=== PATIENT | female | born 1940 | race Caucasian/White ===

== ENCOUNTER 2017-06-08 17:34 | Emergency (ER) | payer MEDICARE, BC ==
--- NOTE | 2017-06-08 18:14 | ER Document Report ---
ED Medical Screen (RME) - General Chief Complaint: Abnormal Lab Results Stated Complaint: SHORTNESS OF BREATH,LEG SWELLING Time Seen by Provider: 06/08/17 18:04 TRAVEL OUTSIDE OF THE [place] IN LAST 30 DAYS: No - HPI Notes: 06/08/17 18:12 Patient seen in today for possible blood transfusion anemia with hemoglobin of 7.6 laboratory studies also elevated BNP of 500 patient denies any vaginal bleeding bloody diarrhea bloody stools. Patient states dyspnea with exertion patient does smoke cigarettes. Also states swelling of her feet patient has been eating a lot of lightly salty popcorn - Related Data Allergies/Adverse Reactions: ibuprofen [From Motrin] Allergy (Verified 06/08/17 17:36) Hives Penicillins Allergy (Verified 06/08/17 17:36) Hives Past Medical History - Social History Chew tobacco use (# tins/day): No Frequency of alcohol use: None Drug Abuse: None - Past Medical History Cardiac Medical History: Denies: Hx Heart Attack, Hx Hypertension Pulmonary Medical History: Denies: Hx Asthma Neurological Medical History: Denies: Hx Cerebrovascular Accident, Hx Seizures Renal/ Medical History: Denies: Hx Peritoneal Dialysis GI Medical History: Denies: Hx Hepatitis, Hx Hiatal Hernia, Hx Ulcer Infectious Medical History: Denies: Hx Hepatitis Past Surgical History: Denies: Hx Mastectomy, Hx Open Heart Surgery, Hx Pacemaker Review of Systems - Review of Systems Cardiovascular: Dyspnea -: Yes All other systems reviewed and negative Physical Exam - Vital signs Vitals: Temp Pulse Resp BP Pulse Ox 97.9 F 91 14 144/60 H 100 06/08/17 17:50 06/08/17 17:50 06/08/17 17:50 06/08/17 17:50 06/08/17 17:50 Interpretation: Normal - General General appearance: Appears well, Alert - HEENT Head: Normocephalic - Respiratory Respiratory status: No respiratory distress - Cardiovascular Murmur: No - Abdominal Inspection: Normal - Extremities General upper extremity: Normal inspection General lower extremity: Normal inspection - Neurological Neuro grossly intact: Yes Sensory: Normal Course - Vital Signs Vital signs: Temp Pulse Resp BP Pulse Ox 97.9 F 91 14 144/60 H 100 06/08/17 17:50 06/08/17 17:50 06/08/17 17:50 06/08/17 17:50 06/08/17 17:50
--- NOTE | 2017-06-08 18:34 | RADIOLOGY REPORT (SQ) ---
EXAM DESCRIPTION: CHEST SINGLE VIEW COMPLETED DATE/TIME: 06/08/2017 6:25 pm REASON FOR STUDY: sob COMPARISON: 06/25/2006 EXAM PARAMETERS: NUMBER OF VIEWS: One view. TECHNIQUE: Single frontal radiographic view of the chest acquired. RADIATION DOSE: NA LIMITATIONS: None. FINDINGS: LUNGS AND PLEURA: Chronic interstitial changes are suggested in the lung bases. No acute infiltrate or effusion is seen. No mass is appreciated. MEDIASTINUM AND HILAR STRUCTURES: No masses. Contour normal. HEART AND VASCULAR STRUCTURES: Heart size is borderline. There is no evidence of failure. BONES: Scoliosis. HARDWARE: None in the chest. OTHER: No other significant finding. IMPRESSION: Borderline cardiomegaly without failure. Chronic lung changes with no acute pulmonary d isease. Scoliosis. TECHNICAL DOCUMENTATION: JOB ID: [id number]- All Rights Reserved Reading location - IP/workstation name: [email or web address]
[2017-06-08 18:51] LABS: ABSOLUTE BASOPHILS # (AUTO) 0.1 10^3/uL (0.0-0.2); ABSOLUTE EOSINOPHILS # (AUTO) 0.1 10^3/uL (0.0-0.6); ABSOLUTE LYMPHOCYTES (AUTO) 1.8 10^3/uL (0.5-4.7); ABSOLUTE MONOCYTES (AUTO) 0.7 10^3/uL (0.1-1.4); ABSOLUTE NEUT (AUTO) 6.9 10^3/uL (1.7-8.2); ABSOLUTE RETICS # 0.061 10^6/uL (0.028-0.122); BASOPHILS % (AUTO) 0.5 % (0-2); EOSINOPHILS % (AUTO) 1.4 % (0-6); HEMATOCRIT 23.6 % (36.0-47.0); LYMPHOCYTES % (AUTO) 18.9 % (13-45); MEAN CORPUSCULAR HEMOGLOBIN 27.9 pg (27.0-33.4); MEAN CORPUSCULAR HGB CONC 32.4 g/dL (32.0-36.0); MEAN CORPUSCULAR VOLUME 86 fl (80-97); MONOCYTES % (AUTO) 6.9 % (3-13); PLATELET COUNT 487 10^3/uL (150-450); RED BLOOD COUNT 2.74 10^6/uL (3.72-5.28); RED CELL DISTRIBUTION WIDTH 15.5 % (11.5-14.0); RETICULOCYTE COUNT (AUTO) 2.24 % (0.66-2.85); SEGMENTED NEUTROPHILS % (AUTO) 72.3 % (42-78); TOTAL CELLS COUNTED % (AUTO) 100 %; WHITE BLOOD COUNT 9.5 10^3/uL (4.0-10.5)
[2017-06-08 18:52] LABS: HEMOGLOBIN 7.6 g/dL (12.0-15.5)
[2017-06-08 19:03] LABS: ANION GAP 7 (5-19); BLOOD UREA NITROGEN 13 mg/dL (7-20); CALCIUM 9.6 mg/dL (8.4-10.2); CARBON DIOXIDE 29 mmol/L (22-30); CHLORIDE 100 mmol/L (98-107); GLUCOSE 94 mg/dL (75-110); IRON(TIBC) 19.2 ug/dL (37-170); POTASSIUM 4.1 mmol/L (3.6-5.0); SODIUM 135.7 mmol/L (137-145)
[2017-06-08 19:17] LABS: NT PRO BNP 2350 pg/mL (<450)
[2017-06-08 19:19] LABS: TROPONIN I < 0.012 ng/mL
--- NOTE | 2017-06-08 19:21 | EKG REPORT ---
SEVERITY:- NORMAL ECG - SINUS RHYTHM : Confirmed by: Kristyn Ball 08-Jun-2017 19:19:55
[2017-06-08 19:41] LABS: FERRITIN 6.21 ng/mL (11.1-264.0)
--- NOTE | 2017-06-08 19:49 | ER Document Report ---
ED General - General Chief Complaint: Abnormal Lab Results Stated Complaint: SHORTNESS OF BREATH,LEG SWELLING Time Seen by Provider: 06/08/17 18:04 Notes: Patient is a 76-year-old female with past medical history of osteoporosis, current everyday smoker, history of B12 deficiency, who presents from an urgent care with concerns of anemia and elevated proBNP. Patient reports for at least the past 5 months she has had exertional dyspnea, general fatigue, and felt somewhat unwell. She saw her primary care doctor regarding this concern, was started on Spiriva but this did not improve her symptoms. She reports that after the labs reported the urgent care where she was referred directly to the emergency department. She did require she denies any seems to improve or worsen her symptoms. She does note that her symptoms are overall unchanged relative to the past several months today. She denies any chest pain, headache , neck pain or focal weakness or numbness. She states she does take folate and B12 supplements but no iron supplementation. She has never required a blood transfusion in the past. She denies any GI bleed symptoms. TRAVEL OUTSIDE OF THE [place] IN LAST 30 DAYS: No - Related Data Allergies/Adverse Reactions: ibuprofen [From Motrin] Allergy (Verified 06/08/17 17:36) Hives Penicillins Allergy (Verified 06/08/17 17:36) Hives Past Medical History - General Information source: Patient - Social History Smoking Status: Current Every Day Smoker Chew tobacco use (# tins/day): No Frequency of alcohol use: None Drug Abuse: None Lives with: Family Family History: Reviewed & Not Pertinent Patient has suicidal ideation: No Patient has homicidal ideation: No - Past Medical History Cardiac Medical History: Denies: Hx Heart Attack, Hx Hypertension Pulmonary Medical History: Denies: Hx Asthma Neurological Medical History: Denies: Hx Cerebrovascular Accident, Hx Seizures Renal/ Medical History: Denies: Hx Peritoneal Dialysis GI Medical History: Denies: Hx Hepatitis, Hx Hiatal Hernia, Hx Ulcer Musculoskeltal Medical History: Reports Hx Arthritis Infectious Medical History: Denies: Hx Hepatitis Past Surgical History: Reports: Hx Hysterectomy. Denies: Hx Mastectomy, Hx Open Heart Surgery, Hx Pacemaker Review of Systems - Review of Systems Notes: Constitutional: Negative for fever. HENT: Negative for sore throat. Eyes: Negative for visual changes. Cardiovascular: Negative for chest pain. Respiratory: Positive for shortness of breath. Gastrointestinal: Negative for abdominal pain, vomiting or diarrhea. Genitourinary: Negative for dysuria. Musculoskeletal: Negative for back pain. Skin: Positive for pallor Neurological: Negative for headaches, weakness or numbness. 10 point ROS negative except as marked above and in HPI. Physical Exam - Vital signs Vitals: Temp Pulse Resp BP Pulse Ox 97.9 F 91 14 144/60 H 100 06/08/17 17:50 06/08/17 17:50 06/08/17 17:50 06/08/17 17:50 06/08/17 17:50 Interpretation: Hypertensive Notes: PHYSICAL EXAMINATION: GENERAL: Well-appearing, well-nourished and in no acute distress. HEAD: Atraumatic, normocephalic. EYES: Pupils equal round and reactive to light, extraocular movements intact, sclera anicteric, conjunctiva are normal. ENT: nares patent, oropharynx clear without exudates. Moist mucous membranes. NECK: Normal range of motion, supple without lymphadenopathy LUNGS: Breath sounds clear to auscultation bilaterally and equal. No wheezes rales or rhonchi. HEART: Regular rate and rhythm without murmurs ABDOMEN: Soft, nontender, normoactive bowel sounds. No guarding, no rebound. No masses appreciated. EXTREMITIES: Normal range of motion, trace edema in the bilateral lower extremities that is equal and symmetric. NEUROLOGICAL: No focal neurological deficits. Moves all extremities spontaneously and on command. PSYCH: Normal mood, normal affect. SKIN: Warm, Dry, normal turgor, mild pallor Course - Re-evaluation Re-evalutation: 06/08/17 19:36 Patient presents with 4-5 months of exertional dyspnea, pallor, and general weakness, found in urgent care today to have a hemoglobin of 7.6 and referred to the emergency department for further assessment. Patient denies any symptoms at the time of my assessment stating that she only becomes fatigued when she exerts herself. Laboratories do show a hemoglobin of 7.6 with a normocytic anemia. Stool guaiac is negative and there is no evidence of gross blood or melena. She denies any symptoms to suggest a GI bleed she has no vaginal bleeding. This does not appear to be acute blood loss anemia. Likely a chronic picture. In regards to the patient's exertional fatigue this is likely secondary to some underlying degree of congestive heart failure as she does have trace edema in the bilateral lower extremities that is equal and symmetric and a proBNP is elevated and chest x-ray does show cardiomegaly without evidence of pulmonary edema. Patient has never been diagnosed with this but again her symptoms have been so long-standing this is likely a chronic issue. She denies any chest pain, troponin is normal, EKG without ischemic changes. The patient's preference is to go home today I think that this is appropriate as these are long-standing issues. I did offer admission which she did decline. However I have emphasized with her that she is going to need to follow-up closely with cardiology, her primary care doctor, as well as hematology for further assessment. Her hemoglobin is above transfusion threshold as it remains above 7 at this time. Her iron and folate levels are low. She has been started on both ferrous sulfate and folate supplementation. I recommended that she discontinue her B12 supplementation as it is too high. At this time will discharge with return precautions and follow-up recommendations. Verbal discharge instructions given a the bedside and opportunity for questions given. Medication warnings reviewed. Patient is in agreement with this plan and has verbalized understanding of return precautions and the need for primary care follow-up in the next 24-72 hours. - Vital Signs Vital signs: Temp Pulse Resp BP Pulse Ox 97.9 F 91 21 H 136/68 H 97 06/08/17 17:50 06/08/17 17:50 06/08/17 19:01 06/08/17 19:00 06/08/17 19:01 - Laboratory Result Diagrams: 06/08/17 18:21 06/08/17 18:21 Laboratory results interpreted by me: 06/08/17 06/08/17 06/08/17 18:21 18:21 18:21 RBC 2.74 L Hgb 7.6 L Hct 23.6 L RDW 15.5 H Plt Count 487 H Sodium 135.7 L Est GFR (Non-Af Amer) 50 L Iron 19.2 L Ferritin 6.21 L NT-Pro-B Natriuret Pep 2350 H Vitamin B12 > 1000.0 H - Diagnostic Test Radiology reviewed: Image reviewed, Reports reviewed Radiology results interpreted by me: 06/08/17 19:40 Chest x-ray: Cardiomegaly, no overt pulmonary edema - EKG Interpretation by Me Additional EKG results interpreted by me: 06/08/17 19:40 Normal sinus rhythm. Rate 99. No ST elevations or depressions. QTC is 4 and 32. Discharge - Discharge Clinical Impression: Normocytic anemia, Exertional dyspnea Congestive heart failure Qualifiers: Heart failure type: unspecified Heart failure chronicity: unspecified Qualified Code(s): I50.9 - Heart failure, unspecified Condition: Stable Disposition: HOME, SELF-CARE Additional Instructions: You have elected to go home today as opposed to being admitted to the hospital. There are multiple types of doctors you will need to follow-up with in the next 1-2 weeks to better evaluate what has been going on over the last several months. Specifically you need to see cardiology as it appears that you have new onset heart failure. They will need to do an ultrasound of your heart also called an Echocardiogram. There may have additional tests they would like to perform. Your blood counts are also low but not so low that you need blood. This likewise appears to be a chronic picture but you do need to follow-up with a blood doctor to determine the cause of this anemia as well as the types of medications you will need to go on to normalize your blood count. Please return to the emergency department immediately if you develop chest pain, pass out, worsening shortness of breath, or have any other symptoms that are worrisome to you. Prescriptions: Ferrous Sulfate 325 mg PO TID 1 Days #90 tablet Folic Acid 0.4 mg PO DAILY #30 tablet Referrals: LEA ROSALES MD [ACTIVE STAFF] - Follow up in 3-5 days BRITTANIE KING MD [ACTIVE STAFF] - Follow up in 3-5 days
[2017-06-08 20:12] LABS: FOLATE > 20.00 ng/mL (>2.76)
[2017-06-08 20:23] VITALS: BP 132/68
== END 2017-06-08 20:22 | disposition home or self-care (01) ==
LOC: ER 17:34
DX: D64.9 Anemia, unspecified (principal); I50.9 Heart failure, unspecified; R06.09 Other forms of dyspnea; R06.02 Shortness of breath; R53.83 Other fatigue; E53.8 Deficiency of other specified B group vitamins; F17.200 Nicotine dependence, unspecified, uncomplicated; Z79.899 Other long term (current) drug therapy; Z88.6 Allergy status to analgesic agent; Z88.0 Allergy status to penicillin
CPT/HCPCS: 36415; 71045; 80048; 82272; 82607; 82728; 82746; 83540; 83550; 83880; 84466; 84484; 85025; 85045; 86850; 86900; 86901; 93005; 93010; 99284

== ENCOUNTER 2019-07-18 16:58 | Emergency (ER) | payer MEDICARE, BC ==
[2019-07-18 17:12] VITALS: BP 147/76
[2019-07-18 18:20] LABS: ABSOLUTE LYMPHOCYTES (AUTO) 0.9 10^3/uL (0.5-4.7); ABSOLUTE MONOCYTES (AUTO) 0.5 10^3/uL (0.1-1.4); ABSOLUTE NEUT (AUTO) 7.3 10^3/uL (1.7-8.2); BASOPHILS % (AUTO) 0.5 % (0-2); EOSINOPHILS % (AUTO) 0.2 % (0-6); HEMATOCRIT 35.4 % (36.0-47.0); HEMOGLOBIN 12.7 g/dL (12.0-15.5); LYMPHOCYTES % (AUTO) 9.9 % (13-45); MEAN CORPUSCULAR HEMOGLOBIN 35.3 pg (27.0-33.4); MEAN CORPUSCULAR HGB CONC 35.7 g/dL (32.0-36.0); MEAN CORPUSCULAR VOLUME 99 fl (80-97); PLATELET COUNT 316 10^3/uL (150-450); RED BLOOD COUNT 3.59 10^6/uL (3.72-5.28); RED CELL DISTRIBUTION WIDTH 13.6 % (11.5-14.0); SEGMENTED NEUTROPHILS % (AUTO) 83.4 % (42-78); TOTAL CELLS COUNTED % (AUTO) 100 %; WHITE BLOOD COUNT 8.7 10^3/uL (4.0-10.5)
[2019-07-18 18:26] LABS: APPEARANCE,URINE CLOUDY; BILIRUBIN,URINE NEGATIVE (NEGATIVE); COLOR,URINE AMBER; GLUCOSE, URINE NEGATIVE (NEGATIVE); KETONES,URINE TRACE mg/dL (NEGATIVE); LEUKOCYTE ESTERASE,URINE TRACE (NEGATIVE); NITRITE,URINE NEGATIVE (NEGATIVE); PROTEIN,URINE 100 mg/dL (NEGATIVE); URINE SPECIFIC GRAVITY 1.021
[2019-07-18 18:44] LABS: ALBUMIN 4.3 g/dL (3.5-5.0); ALKALINE PHOSPHATASE 85 U/L (38-126); ANION GAP 5 (5-19); ASPARTATE AMINO TRANSFERASE 69 U/L (14-36); BILIRUBIN,DIRECT 0.1 mg/dL (0.0-0.4); BILIRUBIN,TOTAL 0.4 mg/dL (0.2-1.3); BLOOD UREA NITROGEN 21 mg/dL (7-20); CALCIUM 9.6 mg/dL (8.4-10.2); CARBON DIOXIDE 30 mmol/L (22-30); CHLORIDE 94 mmol/L (98-107); GLUCOSE 122 mg/dL (75-110); POTASSIUM 4.5 mmol/L (3.6-5.0); TOTAL PROTEIN 7.4 g/dL (6.3-8.2)
--- NOTE | 2019-07-18 18:52 | RADIOLOGY REPORT (SQ) ---
EXAM DESCRIPTION: CHEST SINGLE VIEW IMAGES COMPLETED DATE/TIME: 07/18/2019 5:31 pm REASON FOR STUDY: epigastric pain COMPARISON: 06/08/2017 EXAM PARAMETERS: NUMBER OF VIEWS: One view. TECHNIQUE: Single frontal radiographic view of the chest acquired. RADIATION DOSE: NA LIMITATIONS: None. FINDINGS: LUNGS AND PLEURA: Lungs are hyperinflated. No focal consolidation or pleural effusion. N o pneumothorax. MEDIASTINUM AND HILAR STRUCTURES: No masses. Contour normal. HEART AND VASCULAR STRUCTURES: Heart normal in size. Normal vasculature. BONES: No acute findings. HARDWARE: None in the chest. OTHER: No other significant finding. IMPRESSION: Severe pulmonary emphysema, stable. No acute cardiopulmonary disease. TECHNICAL DOCUMENTATION: JOB ID: [id number] [employer]- All Rights Reserved Reading location - IP/workstation name: [email or web address]
--- NOTE | 2019-07-18 20:16 | ER Document Report ---
ED General - General Chief Complaint: Abdominal Pain Stated Complaint: ABDOMINAL PAIN, DIARRHEA Time Seen by Provider: 07/18/19 20:02 Primary Care Provider: KAELA OWUSU MD [Primary Care Provider] - Follow up as needed Mode of Arrival: Ambulatory Information source: Patient Notes: triage notes Pt reports epigastric discomfort since . Taking antacid with no relief. States was in the yard today had sudden onset of chills and diarrhea x 2. Family brought pt to be seen today. She is breathing e/u denies pain just has the uneasy, nausea feeling. Has not vomited. Denies cardiac hx. my notes 78-year-old female arrives with chief complaint of epigastric pain pointing to this area. Patient reports this is been present for more than 4 days but worse today while she was walking in the yard. She also has diarrhea x2 today. Patient reports for the last month she been using chlorinated cleansers daily because of the COVID-19 outbreak pandemic. She denies any cough cold chest pain back pain cephalgia nuchal rigidity skin rash and she denies any vomiting. She denies any severe nausea but does have some mild nausea. In fact she wants to go home and eat as I presented myself for my exam. TRAVEL OUTSIDE OF THE [place] IN LAST 30 DAYS: No - HPI Onset: This morning Onset/Duration: Sudden Quality of pain: No pain Severity: None Associated symptoms: None - Sacroiliac Exacerbated by: Denies Relieved by: Denies Similar symptoms previously: No Recently seen / treated by doctor: No - Related Data Allergies/Adverse Reactions: ibuprofen [From Motrin] Allergy (Verified 07/18/19 17:31) Hives Penicillins Allergy (Verified 07/18/19 17:31) Hives Past Medical History - General Information source: Patient - Social History Smoking Status: Current Every Day Smoker Cigarette use (# per day): Yes Chew tobacco use (# tins/day): No Smoking Education Provided: Yes Frequency of alcohol use: None Drug Abuse: None Lives with: Family Family History: Reviewed & Not Pertinent Patient has suicidal ideation: No Patient has homicidal ideation: No - Past Medical History Cardiac Medical History: Denies: Hx Heart Attack, Hx Hypertension Pulmonary Medical History: Denies: Hx Asthma Neurological Medical History: Denies: Hx Cerebrovascular Accident, Hx Seizures Renal/ Medical History: Denies: Hx Peritoneal Dialysis GI Medical History: Denies: Hx Hepatitis, Hx Hiatal Hernia, Hx Ulcer Musculoskeletal Medical History: Reports Hx Arthritis Infectious Medical History: Denies: Hx Hepatitis Past Surgical History: Reports: Hx Hysterectomy. Denies: Hx Mastectomy, Hx Open Heart Surgery, Hx Pacemaker Review of Systems - Review of Systems Constitutional: No symptoms reported EENT: No symptoms reported Cardiovascular: No symptoms reported Respiratory: No symptoms reported Gastrointestinal: See HPI, Abdominal pain, Diarrhea, Nausea Genitourinary: No symptoms reported Female Genitourinary: No symptoms reported Musculoskeletal: No symptoms reported Skin: No symptoms reported Hematologic/Lymphatic: No symptoms reported Neurological/Psychological: No symptoms reported Physical Exam - Vital signs Vitals: Temp Pulse Resp BP Pulse Ox 97.8 F 103 H 18 147/76 H 96 07/18/19 17:08 07/18/19 17:08 07/18/19 17:08 07/18/19 17:08 07/18/19 17:08 Interpretation: Tachycardic - General General appearance: Appears well, Alert - HEENT Head: Normocephalic, Atraumatic Eyes: Normal Pupils: PERRL Pharynx: Normal Neck: Normal - Respiratory Respiratory status: No respiratory distress Chest status: Nontender Breath sounds: Normal Chest palpation: Normal - Cardiovascular Rhythm: Regular - Please note patient no longer has a pulse of 103 but rather 85 bpm. Heart sounds: Normal auscultation Murmur: No - Abdominal Inspection: Normal Distension: No distension Bowel sounds: Hyperactive Tenderness: Tender - Tender epigastric area on palpation Organomegaly: No organomegaly - Back Back: Normal - Extremities General upper extremity: Normal inspection General lower extremity: Normal inspection - Neurological Neuro grossly intact: Yes Cognition: Normal Orientation: AAOx4 [place] Coma Scale Eye Opening: Spontaneous [place] Coma Scale Verbal: Oriented [place] Coma Scale Motor: Obeys Commands [place] Coma Scale Total: 15 Speech: Normal Motor strength normal: LUE, RUE, LLE, RLE Sensory: Normal - Psychological Associated symptoms: Normal affect - Skin Skin Temperature: Warm Skin Moisture: Dry Course - Vital Signs Vital signs: Temp Pulse Resp BP Pulse Ox 97.8 F 103 H 18 147/76 H 96 07/18/19 17:35 07/18/19 17:08 07/18/19 17:08 07/18/19 17:08 07/18/19 17:08 - Laboratory Result Diagrams: 07/18/19 18:06 07/18/19 18:06 Laboratory results interpreted by me: 07/18/19 07/18/19 07/18/19 18:06 18:06 18:06 RBC 3.59 L Hct 35.4 L MCV 99 H MCH 35.3 H Lymph % (Auto) 9.9 L Seg Neutrophils % 83.4 H Sodium 128.8 L Chloride 94 L BUN 21 H Creatinine 1.27 H Est GFR ( Amer) 49 L Est GFR (MDRD) Non-Af 41 L Glucose 122 H AST 69 H ALT 41 H Lipase 494.2 H Urine Protein 100 H Urine Ketones TRACE H Urine Urobilinogen 2.0 H Ur Leukocyte Esterase TRACE H Urine Ascorbic Acid 40 H - Diagnostic Test Radiology reviewed: Reports reviewed Critical Care Note - Critical Care Note Total time excluding time spent on procedures (mins): 60 Comments: Patient" wants to leave so she can get something to eat" I advised her of her chest x-ray and her laboratory results with a positive lipase/patient was not willing to get a CT at this time. When I walked into the room the hvac field service technician was getting ready to take her to CT and patient wanted to go home. Discharge - Discharge Clinical Impression: PUD (peptic ulcer disease) Abdominal pain Qualifiers: Abdominal location: epigastric Qualified Code(s): R10.13 - Epigastric pain Pancreatitis Qualifiers: Chronicity: acute Pancreatitis type: unspecified pancreatitis type Acute pancreatitis complication: unspecified Qualified Code(s): K85.90 - Acute pancreatitis without necrosis or infection, unspecified Condition: Good Disposition: HOME, SELF-CARE Additional Instructions: Follow-up with personal doctor this week return to ER as needed take medicines as directed encourage fluids. Try to stick to bananas rice applesauce toast nikolai naima crackers and then advance to other foods. Try to avoid milk and meat products for least 48 hours Prescriptions: Sucralfate [Carafate 1 gm Tablet] 1 gm PO ACHS #60 tablet Famotidine [Pepcid 20 mg Tablet] 20 mg PO BID #12 tablet Ondansetron [Zofran Odt 4 mg Tablet] 1 tab PO Q4H PRN #15 tab.rapdis PRN Reason: For Nausea/Vomiting Referrals: KAELA OWUSU MD [Primary Care Provider] - Follow up as needed
[2019-07-18] MEDS ORDERED: SUCRALFATE 1 GM TABLET PO ONE (20:40)
[2019-07-18] MEDS ORDERED: ONDANSETRON 4 MG TAB.RAPDIS PO ONE (20:40)
--- NOTE | 2019-07-18 22:32 | EKG REPORT ---
SEVERITY:- NORMAL ECG - SINUS RHYTHM : Confirmed by: Kristyn Ball 18-Jul-2019 22:30:59
== END 2019-07-18 20:49 | disposition home or self-care (01) ==
LOC: ER 16:58
DX: K27.9 Peptic ulcer, site unspecified, unspecified as acute or chronic, without hemorrhage or perforation (principal); K85.90 Acute pancreatitis without necrosis or infection, unspecified; R10.13 Epigastric pain; R19.7 Diarrhea, unspecified; F17.210 Nicotine dependence, cigarettes, uncomplicated
CPT/HCPCS: 93005; 99285; 36415; 83690; 85025; 80053; 81001; 84484; 71045; 93010; A9270 ×2; S0119

== ENCOUNTER → 2020-01-23 | Outpatient (CLI) | payer MEDICARE, BC | LOC: OD 15:20 | PROVIDERS: ATTEND Family Medicine | DX: R11.0 Nausea (principal) | CPT/HCPCS: 36415; 86677 ==

== ENCOUNTER 2020-01-26 16:30 | Emergency (ER) | payer BC, MEDICARE ==
[2020-01-26] MEDS ORDERED: ONDANSETRON 4 MG TAB.RAPDIS PO ONE (17:05)
--- NOTE | 2020-01-26 17:05 | ER Document Report ---
ED Medical Screen (RME) - General Chief Complaint: Abdominal Pain Stated Complaint: ABDOMINAL PAIN,NAUSEA Time Seen by Provider: 01/26/20 16:58 Primary Care Provider: KAELA OWUSU MD [Primary Care Provider] - Follow up as needed Mode of Arrival: Ambulatory Information source: Patient Notes: 79-year-old female with complaints of epigastric pain that is been ongoing for several weeks. Patient reports mild nausea but denies any vomiting, diarrhea, fever or chills. She states she went and saw her doctor for this about a week ago and had normal labs at that time. Mild epigastric tenderness. I have greeted and performed a rapid initial assessment of this patient. A comprehensive ED assessment and evaluation of the patient, analysis of test results and completion of the medical decision making process will be conducted by additional ED providers. I have specifically instructed the patient or family members with the patient to immediately return to any nursing staff should anything change in the patient's condition or with their chief complaint. TRAVEL OUTSIDE OF THE [place] IN LAST 30 DAYS: No - Related Data Allergies/Adverse Reactions: ibuprofen [From Motrin] Allergy (Verified 01/26/20 16:56) Hives Penicillins Allergy (Verified 01/26/20 16:56) Hives Past Medical History - Past Medical History Cardiac Medical History: Denies: Hx Heart Attack, Hx Hypertension Pulmonary Medical History: Denies: Hx Asthma Neurological Medical History: Denies: Hx Cerebrovascular Accident, Hx Seizures Renal/ Medical History: Denies: Hx Peritoneal Dialysis GI Medical History: Denies: Hx Hepatitis, Hx Hiatal Hernia, Hx Ulcer Musculoskeltal Medical History: Reports Hx Arthritis Infectious Medical History: Denies: Hx Hepatitis Past Surgical History: Reports: Hx Hysterectomy. Denies: Hx Mastectomy, Hx Open Heart Surgery, Hx Pacemaker Doctor's Discharge - Discharge Referrals: KAELA OWUSU MD [Primary Care Provider] - Follow up as needed
[2020-01-26 18:18] LABS: ABSOLUTE EOSINOPHILS # (AUTO) 0.3 10^3/uL (0.0-0.6); ABSOLUTE LYMPHOCYTES (AUTO) 1.2 10^3/uL (0.5-4.7); ABSOLUTE MONOCYTES (AUTO) 0.6 10^3/uL (0.1-1.4); ABSOLUTE NEUT (AUTO) 5.3 10^3/uL (1.7-8.2); BASOPHILS % (AUTO) 0.6 % (0-2); EOSINOPHILS % (AUTO) 3.6 % (0-6); HEMATOCRIT 41.6 % (36.0-47.0); HEMOGLOBIN 14.4 g/dL (12.0-15.5); MEAN CORPUSCULAR HGB CONC 34.7 g/dL (32.0-36.0); MEAN CORPUSCULAR VOLUME 98 fl (80-97); MONOCYTES % (AUTO) 8.4 % (3-13); PLATELET COUNT 368 10^3/uL (150-450); RED BLOOD COUNT 4.24 10^6/uL (3.72-5.28); SEGMENTED NEUTROPHILS % (AUTO) 71.4 % (42-78); TOTAL CELLS COUNTED % (AUTO) 100 %; WHITE BLOOD COUNT 7.4 10^3/uL (4.0-10.5)
[2020-01-26 18:31] LABS: ALBUMIN 4.3 g/dL (3.5-5.0); ALKALINE PHOSPHATASE 88 U/L (38-126); ANION GAP 5 (5-19); ASPARTATE AMINO TRANSFERASE 40 U/L (14-36); BILIRUBIN,DIRECT 0.2 mg/dL (0.0-0.4); BILIRUBIN,TOTAL 0.6 mg/dL (0.2-1.3); BLOOD UREA NITROGEN 13 mg/dL (7-20); CALCIUM 10.1 mg/dL (8.4-10.2); CARBON DIOXIDE 33 mmol/L (22-30); CHLORIDE 97 mmol/L (98-107); GLUCOSE 81 mg/dL (75-110); POTASSIUM 4.5 mmol/L (3.6-5.0); TOTAL PROTEIN 7.5 g/dL (6.3-8.2)
--- NOTE | 2020-01-26 22:48 | ER Document Report ---
ED GI/ - General Chief Complaint: Upper Abdominal Pain Stated Complaint: ABDOMINAL PAIN,NAUSEA Time Seen by Provider: 01/26/20 16:58 Primary Care Provider: KAELA OWUSU MD [Primary Care Provider] - Follow up as needed Mode of Arrival: Ambulatory Notes: CHIEF COMPLAINT: Upper abdominal pain for 2-1/2 weeks HPI: 79-year-old female presenting to the emergency department complaining of epigastric abdominal pain over the last 2-1/2 weeks. States that she saw her primary care provider. States that she has an appointment with GI in February. Patient states that she has had nausea. She states that eating and drinking make the discomfort worse. She has a prior history of pancreatitis. Patient denies chest pain shortness of breath. Patient denies fever ROS: See HPI - all other systems were reviewed and are otherwise negative Constitutional: no fever Eyes: no drainage, no blurred vision ENT: no runny nose, no sore throat Cardiovascular: no chest pain Resp: no SOB, no cough GI: no vomiting, no diarrhea, + abdominal pain, mild nausea : no dysuria Integumentary: no rash Allergy: no hives Musculoskeletal: no extremity pain or swelling Neurological: no numbness/tingling, no weakness MEDICATIONS: I agree with the patient medications as charted by the RN. ALLERGIES: I agree with the allergies as charted by the RN. PAST MEDICAL HISTORY/PAST SURGICAL HISTORY: Reviewed and agree as charted by RN. SOCIAL HISTORY: Reviewed and agree as charted by RN. FAMILY HISTORY: No significant familial comorbid conditions directly related to patient complaint EXAM: Reviewed vital signs as charted by RN. CONSTITUTIONAL: Alert and oriented and responds appropriately to questions. Well-appearing; well-nourished HEAD: Normocephalic; atraumatic EYES: PERRL; Conjunctivae clear, sclerae non-icteric ENT: normal nose; no rhinorrhea; moist mucous membranes; pharynx without lesions noted, no uvula edema or deviation, no tonsillar hypertrophy, phonation normal NECK: Supple without meningismus; non-tender; no cervical lymphadenopathy, no masses CARD: RRR; no murmurs, no clicks, no rubs, no gallops; symmetric distal pulses RESP: Normal chest excursion without splinting or tachypnea; breath sounds clear and equal bilaterally; no wheezes, no rhonchi, no rales, pulse oximetry 98% on room air not hypoxic ABD/GI: Normal bowel sounds; non-distended; soft, mild tenderness in the e pigastric region on palpation, no rebound, no guarding; no palpable organomegaly or masses. BACK: The back appears normal and is non-tender to palpation, there is no CVA tenderness EXT: Normal ROM in all joints; non-tender to palpation; no cyanosis, no effusions, no edema SKIN: Normal color for age and race; warm; dry; good turgor; no acute lesions noted NEURO: Moves all extremities equally; Motor and sensory function intact PSYCH: The patient's mood and manner are appropriate. Grooming and personal hygiene are appropriate. MDM: 79-year-old female with epigastric pain intermittent over the last 2-1/2 weeks with increased nausea and discomfort with eating. Differential would include gastric ulcer. Will obtain EKG and 1 set of screening cardiac labs given the patient's age. We will plan for CT imaging given her age to evaluate for perforation, mass, obstructive pattern. Differential would also include pancreatitis and cholelithiasis. She has no specific tenderness in the right upper quadrant though. TRAVEL OUTSIDE OF THE [place] IN LAST 30 DAYS: No - Related Data Allergies/Adverse Reactions: ibuprofen [From Motrin] Allergy (Verified 01/26/20 16:56) Hives Penicillins Allergy (Verified 01/26/20 16:56) Hives Past Medical History - General Information source: Patient - Social History Smoking Status: Current Every Day Smoker Chew tobacco use (# tins/day): No Frequency of alcohol use: None Drug Abuse: None Family History: Reviewed & Not Pertinent - Past Medical History Cardiac Medical History: Denies: Hx Heart Attack, Hx Hypertension Pulmonary Medical History: Denies: Hx Asthma Neurological Medical History: Denies: Hx Cerebrovascular Accident, Hx Seizures Renal/ Medical History: Denies: Hx Peritoneal Dialysis GI Medical History: Denies: Hx Hepatitis, Hx Hiatal Hernia, Hx Ulcer Musculoskeletal Medical History: Reports Hx Arthritis Infectious Medical History: Denies: Hx Hepatitis Past Surgical History: Reports: Hx Hysterectomy. Denies: Hx Mastectomy, Hx Open Heart Surgery, Hx Pacemaker Physical Exam - Vital signs Vitals: Temp Pulse Resp BP Pulse Ox 98.1 F 101 H 18 138/72 H 98 01/26/20 16:59 01/26/20 16:59 01/26/20 16:59 01/26/20 16:59 01/26/20 16:59 Course - Vital Signs Vital signs: Temp Pulse Resp BP Pulse Ox 97.5 F 79 18 115/64 96 01/27/20 00:53 01/27/20 00:53 01/26/20 16:59 01/27/20 00:53 01/27/20 00:53 - Laboratory Result Diagrams: 01/26/20 17:26 01/26/20 17:26 Laboratory results interpreted by me: 01/26/20 01/26/20 17:26 17:26 MCV 98 H MCH 34.0 H Sodium 134.6 L Chloride 97 L Carbon Dioxide 33 H Est GFR (MDRD) Non-Af 54 L AST 40 H Lipase 338.1 H Discharge - Discharge Clinical Impression: Hiatal hernia, Abdominal pain, epigastric Condition: Stable Disposition: HOME, SELF-CARE Additional Instructions: It was noted on your imaging studies today that you have a large hiatal hernia likely causing some of your symptoms. If you develop vomiting or fever return for reevaluation. It is important that you follow-up with gastroenterology for further evaluation you have requested to follow-up at [facility]. The health actuary there is Dr. Lalito Jarvis , CALL FOR APPT Prescriptions: Sucralfate [Carafate 1 gm Tablet] 1 gm PO ACHS #120 tablet Referrals: KAELA OWUSU MD [Primary Care Provider] - Follow up as needed
--- NOTE | 2020-01-27 00:38 | RADIOLOGY REPORT (SQ) ---
EXAM DESCRIPTION: Site: CT ABD/PELVIS WITH IV ONLY RP: CT ABDOMEN PELVIS WITH IV CONTRAST CLINICAL HISTORY: 79 years Female; epigastric pain; TECHNIQUE: CT of the abdomen and pelvis using intravenous contrast. All CT scans at this facility use dose modulation, iterative reconstruction, and/or weight based dosing when appropriate to reduce radiation dose to as low as reasonably achievable. COMPARISON: None. FINDINGS: Abdomen: Stomach: Large hiatal hernia, with much of the stomach above the diaphragm. No adjacent edema. Liver:No focal lesions. No intrahepatic ductal distention. Gallbladder:Nondistended Pancreas:Within normal limits Spleen:Within normal limits Right kidney:No hydronephrosis. No focal lesion. Left kidney:No hydronephrosis. No focal lesion. Adrenal glands:Within normal limits Vascular structures: Moderate scattered aortic and branch calcifications. No aneurysm or dissection. Pelvis: Small bowel:No significant distention. Appendix: Not reliably identified on this exam without oral contrast. Colon:No distention or acute pericolonic edema. No free intraperitoneal fluid or air. Bones: Dextrocurvature at the thoracolumbar junction. L4-L5: Severe facet arthropathy with 10 mm anterior subluxation of L4 on L5. Central canal is reduced to approximately 5 mm. No acute fracture. Bladder: Unremarkable. No pelvic mass or adenopathy. IMPRESSION: 1. Large hiatal hernia, with much of the stomach above the diaphragm. 2. No bowel obstruction or perforation. No acute inflammatory changes. 3. 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
[2020-01-27 01:00] VITALS: BP 115/64
--- NOTE | 2020-01-27 13:30 | EKG REPORT ---
SEVERITY:- ABNORMAL ECG - SINUS RHYTHM FIRST DEGREE AV BLOCK BORDERLINE RIGHT AXIS DEVIATION : Confirmed by: Dilia Ling MD 27-Jan-2020 13:30:30
== END 2020-01-27 01:26 | disposition home or self-care (01) ==
LOC: ER 16:30
DX: K44.9 Diaphragmatic hernia without obstruction or gangrene (principal); R10.13 Epigastric pain; R10.816 Epigastric abdominal tenderness; R11.0 Nausea; M47.816 Spondylosis without myelopathy or radiculopathy, lumbar region; F17.200 Nicotine dependence, unspecified, uncomplicated; Z88.8 Allergy status to other drugs, medicaments and biological substances; Z88.0 Allergy status to penicillin
CPT/HCPCS: 93005; 99285; 36415; 83690; 85025; 80053; 84484; 74177; 93010; S0119